=== PATIENT | female | born 1945 | race Caucasian/White ===

== ENCOUNTER 2022-11-14 10:04 | Outpatient (CLI) | payer MEDICARE | END 2022-11-14 10:05 | disposition home or self-care (01) | LOC: CSHMRI 10:04 | PROVIDERS: ATTEND Nurse Practitioner Family | DX: M48.062 Spinal stenosis, lumbar region with neurogenic claudication (principal); M47.816 Spondylosis without myelopathy or radiculopathy, lumbar region; M16.0 Bilateral primary osteoarthritis of hip; M41.86 Other forms of scoliosis, lumbar region | CPT/HCPCS: 72120; 72148 ==